=== PATIENT | female | born 1945 | race Caucasian/White ===

== ENCOUNTER → 2017-09-21 | Outpatient (CLI) | payer MEDICARE ==
--- NOTE | 2017-09-21 11:57 | Diagnostic Imaging Report ---
PROCEDURE:SP LUMBAR, COMPLETE MIN 4VW TECHNIQUE:AP, lateral, bilateral oblique and cone-down lateral views lumbar spine INDICATION:Rheumatoid arthritis; low back pain COMPARISON:None. FINDINGS: 5 [id number] lumbar vertebral bodies with lumbarization of S1. Normal vertebral body height. Disc space narrowing at L3-L4 and complete loss of disc space height at L5-S1. Grade 1 anterolisthesis of L3 on L4 with mild bilateral facet arthropathy at L4-L5 and L5-S1. Notable straightening. Normal paraspinal soft tissues. CONCLUSION: Multilevel degenerative disc disease most notable at L3-L4 and L5-S1 with mild facet arthropathy. Loss of normal lumbar lordosis. Dictated by: Sid Abebe M.D. on 09/21/2017 at 12:00 Electronically approved by: Sid Abebe M.D. on 09/21/2017 at 12:00
== END ==
LOC: RAD 11:03
PROVIDERS: ATTEND Student in an Organized Health Care Education/Training Program
DX: M06.9 Rheumatoid arthritis, unspecified (principal); M54.40 Lumbago with sciatica, unspecified side
CPT/HCPCS: 72110

== ENCOUNTER → 2017-11-04 | Outpatient (CLI) | payer MEDICARE ==
--- NOTE | 2017-11-05 18:50 | Diagnostic Imaging Report ---
History: Low back pain Comparison studies: X-ray of the lumbar spine 09/21/2017 Technique: Sagittal, coronal and axial T2 , sagittal T1 and IR, axial spin density oblique. Intravenous contrast: None Findings: Transitional vertebra at the lower lumbar spine with lumbarization of S1. For dictation purposes the last well-formed intervertebral disc will be labeled labeled L5-S1. Pseudoarthrosis of L5 left transverse processes with sacral ala. Alignment: Straightening of the lumbar spine lordosis. Mild grade 1 anterolisthesis of L2 over L3..No scoliosis. Soft tissues: No T2 hyperintense inflammatory changes. Paraspinal muscles: No signal abnormalities. No atrophy. Lower thoracic cord:Normal in signal and morphology. The tip of the conus is at L1. Cauda equina: No masses. No arachnoiditis. Vertebrae: Normal in height and signal intensity. No compression fractures, infection or neoplasm. Degenerative changes: L1-L2: Is degeneration with loss of T2 signal. Patent canal and foramina. L2-L3: Disc degeneration with loss of T2 signal, decreased intervertebral space and endplate irregularities. Focus of the edema at L3 superior endplate anteriorly. Grade 1 anterolisthesis. Uncoverage of the superior disc material. Left central and subarticular superiorly migrated disc extrusion results in severe canal stenosis more significant on the left. Mild bilateral facet hypertrophy. Mild bilateral foraminal narrowing. L3-L4: Disc degeneration with loss of T2 signal. Diffuse disc bulge, mild facet hypertrophy and thickening of the ligamentum flavum results in moderate canal stenosis, narrowing of the left subarticular recess and moderate left foraminal narrowing. Trace of bilateral facet joints.. L4-L5: Fused intervertebral discs. Mild facet hypertrophy without canal stenosis and mild bilateral foraminal . L5-S1: Mild bilateral facet hypertrophy Patent canal and foramina. Additional findings: None IMPRESSION: Transitional vertebra at the lumbosacral junction with lumbarization of S1. The last well-formed intervertebral disc is labeled L5-S1. Severe canal stenosis at L2-L3 secondary to grade 1 anterolisthesis, left central and subarticular superiorly migrated disc extrusion and mild facet hypertrophy. Moderate degenerative canal stenosis and moderate left foraminal narrowing at L3-L4. Synovitis changes at L3-L4. Other degenerative changes as described above Signed by: DR Rober Lozano M.D. on 11/05/2017 6:47 PM
== END ==
LOC: MRI 16:23
PROVIDERS: ATTEND Physical Medicine & Rehabilitation
DX: M54.16 Radiculopathy, lumbar region (principal)
CPT/HCPCS: 72148

== ENCOUNTER → 2018-03-10 | Outpatient (CLI) | payer MEDICARE ==
--- NOTE | 2018-03-10 13:25 | Diagnostic Imaging Report ---
Exam: KUB. Clinical History: Kidney stones. Comparison: None Findings: Frontal view of the abdomen demonstrates a nonobstructive bowel gas pattern with moderate retained stool. 1.3 cm calcification over the upper medial right abdomen may be a gallstone. 0.6 cm calcification over the mid right kidney. 0.5 cm calcification over the lower left kidney. Punctate calcifications over the mid left kidney Small calcifications over the left upper abdomen could be vascular in origin. No acute bone abnormality. Impression: Findings consistent with bilateral nephrolithiasis. Renal ultrasound or CT scan may be of benefit. Signed by: Dr. Aung Love M.D. on 03/10/2018 1:22 PM
== END ==
LOC: RAD 12:34
PROVIDERS: ATTEND Urology
DX: N20.0 Calculus of kidney (principal)
CPT/HCPCS: 74018

== ENCOUNTER → 2018-06-13 | Outpatient (CLI) | payer MEDICARE ==
--- NOTE | 2018-06-13 14:52 | Diagnostic Imaging Report ---
RIGHT HIP - 3 Images HISTORY: Rheumatoid arthritis, pain COMPARISON: None available. FINDINGS: Bones: Some of the osseous structures are partially obscured by stool and overlying bowel gas. No acute displaced fracture. No aggressive osseous lesion. 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 Joints: Moderate left and mild right degenerative changes of the sacroiliac joints. Mild degenerative changes of the pubic symphysis. Soft tissues: The soft tissues appear unremarkable. IMPRESSION: 1. No acute radiographic abnormality. 2. Multifocal degenerative changes, most notably moderate of the left sacroiliac joint. 3. 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 Signed by: Dr. Morgan Zaldivar D.O., M.M.M. on 06/13/2018 2:49 PM
== END ==
LOC: RAD 12:04
PROVIDERS: ATTEND Student in an Organized Health Care Education/Training Program
DX: M25.551 Pain in right hip (principal); M06.9 Rheumatoid arthritis, unspecified

== ENCOUNTER → 2019-05-18 | Outpatient (CLI) | payer MEDICARE ==
--- NOTE | 2019-05-18 12:45 | Diagnostic Imaging Report ---
Abdomen, 1 view. History: Kidney stones. Comparison: 03/10/2018. Findings: Air is scattered throughout nondilated small and large bowel. Bilateral upper quadrant calcifications are unchanged, suggestive of gallstones and splenic granulomata. 6 mm calcification projected over the left renal lower pole is unchanged. The osseous structures are intact. IMPRESSION: Possible small left renal calculus without significant change. No evidence of right renal calculi. Signed by: Chapincito Bergman on 05/18/2019 12:42 PM
== END ==
LOC: RAD 11:01
PROVIDERS: ATTEND Urology
DX: N20.0 Calculus of kidney (principal)
CPT/HCPCS: 74018

== ENCOUNTER → 2019-12-28 | Outpatient (CLI) | payer MEDICARE ==
--- NOTE | 2019-12-28 10:11 | Diagnostic Imaging Report ---
Exam: Abdominal film Clinical History: Renal stones Comparison: 05/18/2019 DISCUSSION: 5 mm calcification projects over the lower pole of the left renal shadow. Coarse right upper quadrant calcification is unchanged which may represent a gallstone. Multiple round left upper quadrant calcifications are also unchanged and may represent calcified splenic granulomata. Peripherally calcified injection granulomata project just above the right and left iliac crests. Bowel gas pattern is nonobstructive. No organomegaly. Regional skeletal structures intact. Transitional lumbosacral anatomy with left-sided pseudoarthrosis between L5 and S1 is again noted. IMPRESSION: Stable left lower pole renal calculus relative to 05/18/2019. Signed by: Dr. Tyler Reddy M.D. on 12/28/2019 10:08 AM
== END ==
LOC: RAD 09:20
PROVIDERS: ATTEND Urology
DX: N20.0 Calculus of kidney (principal)
CPT/HCPCS: 74018

== ENCOUNTER → 2020-05-09 | Day surgery (SDC) | payer MEDICARE ==
[2020-05-06 10:08] LABS: BASOPHILS # (AUTO) 0.1 (0.0-0.1); BASOPHILS % 0.8 % (0.0-1.0); EOSINOPHILS # (AUTO) 0.1 (0.0-0.4); EOSINOPHILS % 1.4 % (0.0-6.0); HEMATOCRIT 40.1 % (34.2-44.1); HEMOGLOBIN 13.2 g/dL (12.0-16.0); LYMPHOCYTES # (AUTO) 1.5 (1.0-3.2); MEAN CORPUSCULAR HEMOGLOBIN 29.5 pg (28-32); MEAN CORPUSCULAR HGB CONC 32.9 g/dL (31-35); MEAN CORPUSCULAR VOLUME 89.7 fL (81-99); MONOCYTES # (AUTO) 0.5 (0.2-0.8); MONOCYTES % 7.7 % (4.4-11.3); NEUTROPHILS # (AUTO) 4.4 (2.1-6.9); NEUTROPHILS % 66.8 % (38.7-80.0); PLATELET COUNT 256 x10e3/uL (140-360); RED BLOOD COUNT 4.47 x10e6/uL (3.6-5.1); RED CELL DISTRIBUTION WIDTH 13.9 % (11.7-14.4)
[~2020-05-09] MED LIST: ACETAMINOPHEN/CODEINE 300MG - 30MG TAB ONE; ALENDRONATE SOD70 MG PO; B&O 60MG R/S 60 MG SUPP PR ONE; CEFAZOLIN SOD 1 GM/NS 50ML 50 ML IV ONE; DEXAMETHASONE SOD PHOS INJ 4 MG/ML VIAL ONE; FENTANYL CITRATE/PF 100MCG/2 ML INJ ONE; FOLIC ACID0.4 MG PO; IOPAMIDOL 300MG/ML 50ML INFUS..BTL IV ONE; LIDOCAINE HCL 2% LOCAL INJ 5 ML SDV VIAL INJ ONE; LOTREL 5-20 MG1 EACH PO; METHOTREXATE2.5 MG PO; OMEPRAZOLE40 MG PO; ONDANSETRON HCL 4 MG ORAL DISINTEGRATING TAB ONE; ONDANSETRON HCL INJ 2MG/ML 2ML 2 MG/ML VIAL ONE; PLAQUENIL200 MG PO; PROPOFOL IV EMULSION 10 MG/ML 20 ML VIAL ONE; SEVOFLURANE INHAL SOLN 250 ML PEN BTL ONE
[2020-05-09 15:13] VITALS: BP 119/60
== END | disposition home or self-care (01) ==
LOC: OR 11:37
PROVIDERS: ATTEND Urology
DX: N20.0 Calculus of kidney (principal); I10 Essential (primary) hypertension; K21.9 Gastro-esophageal reflux disease without esophagitis; Z91.041 Radiographic dye allergy status; Z01.810 Encounter for preprocedural cardiovascular examination; Z01.812 Encounter for preprocedural laboratory examination; Z01.818 Encounter for other preprocedural examination; Z20.822 Contact with and (suspected) exposure to COVID-19
CPT/HCPCS: 36415; 50590; 71046; 85025; 93005; C1758; J0690; J1100; J2001; J2405; J2704; J3010; Q0162; Q9967; U0002

== ENCOUNTER → 2020-11-21 | Outpatient (CLI) | payer MEDICARE ==
[~2020-11-21] MED LIST changes: -ACETAMINOPHEN/CODEINE 300MG - 30MG TAB ONE; -B&O 60MG R/S 60 MG SUPP PR ONE; -CEFAZOLIN SOD 1 GM/NS 50ML 50 ML IV ONE; -DEXAMETHASONE SOD PHOS INJ 4 MG/ML VIAL ONE; -FENTANYL CITRATE/PF 100MCG/2 ML INJ ONE; -IOPAMIDOL 300MG/ML 50ML INFUS..BTL IV ONE; -LIDOCAINE HCL 2% LOCAL INJ 5 ML SDV VIAL INJ ONE; -ONDANSETRON HCL 4 MG ORAL DISINTEGRATING TAB ONE; -ONDANSETRON HCL INJ 2MG/ML 2ML 2 MG/ML VIAL ONE; -PROPOFOL IV EMULSION 10 MG/ML 20 ML VIAL ONE; -SEVOFLURANE INHAL SOLN 250 ML PEN BTL ONE
== END ==
LOC: RAD 09:01
PROVIDERS: ATTEND Urology
DX: N20.0 Calculus of kidney (principal)
CPT/HCPCS: 74018

== ENCOUNTER → 2022-08-06 | Outpatient (CLI) | payer MEDICARE | LOC: RAD 11:45 | PROVIDERS: ATTEND Urology | DX: N20.0 Calculus of kidney (principal) | CPT/HCPCS: 74018 ==

== ENCOUNTER → 2023-08-26 | Outpatient (REF) | payer MEDICARE | LOC: RAD 10:15 | PROVIDERS: ATTEND Urology | DX: N20.0 Calculus of kidney (principal) | CPT/HCPCS: 74018 ==

== ENCOUNTER → 2024-12-28 | Outpatient (REF) | payer MEDICARE | LOC: RAD 11:19 | PROVIDERS: ATTEND Urology | DX: N20.0 Calculus of kidney (principal) | CPT/HCPCS: 74018 ==